=== PATIENT | male | born 1965 | race Caucasian/White ===

== ENCOUNTER → 2017-04-18 | Day surgery (SDC) | payer OTHER ==
[~2017-04-18] VITALS: Ht 172.7 cm; Wt 86.0 kg
[~2017-04-18] MED LIST: AMLO1CAP3 PO; CARV25TA PO; METH750T3 PO; Sodium Chloride LOK Flush 10 mL Syringe IV PRN; TAMS0.4C98 PO; fentaNYL-PF 50 mCg/mL 2 mL Inj IVPUSH PRN
[2017-04-18 08:47] VITALS: BP 154/109; PULSE 68; RESP 14; O2SAT 99
[2017-04-18] MEDS: 0.9% Sodium Chloride 1,000 ML IV SCH ×2 (09:17→09:32)
[2017-04-18 09:43] VITALS: BP 128/83; PULSE 71; RESP 16; O2SAT 96
--- NOTE | 2017-04-18 09:43 | PCM.ENDCOL ---
Colonoscopy Date of Service: Apr 18, 2017 Physician Schuyler Woo MD Pre Procedure Diagnosis: Screening family history of colon cancer Post Procedure Dx & Findings: Polyps hemorrhoid Procedure Colonoscopy PROCEDURE IN DETAIL: Prep adequate Withdrawal time 20 minutes After unremarkable rectal examination the Olympus video colonoscope was inserted patient's anal canal and was advanced to cecum. Landmarks were identified including the ileocecal valve and appendiceal orifice. Scope was withdrawn systematically. Visualized colonic mucosa showed healthy shiny mucosa with normal healthy-appearing vasculature. In the cecum, there was a 1 mm polyp which was removed completely using cold forceps. In the ascending colon there was a 2 mm polyp which is removed completely with cold snare. There was also 1 mm polyp in the ascending colon which was removed completely using cold forceps. In the transverse colon, there was a 1.5 cm flat polyp was removed completely hot snare. 6 mL of normal saline use for lifting. 2 resolution clips deployed. There was a 6-7 mm flat polyp in the transverse colon which was also removed completely using cold snare. In the rectum retroflexion was done which showed hemorrhoids. Anal canal was inspected carefully on the way out and hemorrhoids noted. Impression Polyp 5 status post complete removal. Largest polyp was 1.5 cm. Family history of colon cancer. Hemorrhoids Recommendation Repeat colonoscopy 3 years Presedation Assessment Risks and Benefits Informed consent was obtained from the patient after all risks and benefits including but not limited to drug reaction, infection, pain, bleeding, perforation, as well as alternatives were discussed. Patient monitoring Continuous pulse oximetry, cardiac monitoring, blood pressure monitoring, IV access, and oxygen at 2L per nasal cannula. Periprocedural Fentanyl: Fentanyl 75mcg Incrementally Midazolam: Midazolam 4mg Incrementally Complications There were no periprocedural complications identified. Post Procedure Plan Post Procedure Recommendations 1. Restrict activities today. 2. Resume normal activities in the morning. 3. Resume medications. 4. Patient informed of normal post procedure side effects as bloating, drowsiness, blood streaking in the stool. 5. average risk CRCS. If colon polyps come back as: -Hyperplastic- can repeat colonoscopy in 10 years -Tubular adenoma- repeat colonoscopy in 5 years -Tubulovillous/villous adenoma- repeat colonoscopy in 3 years -If any dysplasia- return to clinic as soon as possible 6. Please don't hesitate to call me with any questions. Schuyler Woo MD Apr 18, 2017 09:43
[2017-04-18 09:53] VITALS: BP 136/89; PULSE 71; RESP 16; O2SAT 96
--- NOTE | 2017-04-22 11:24 | PATH ---
SURGICAL PATHOLOGY Attending Physician:Schuyler Woo M.D. CASE STATUS: Signed Out PATIENT NAME: WILLY NOWAK JR PID: [id number] : 1965 DATE COLLECTED:04/18/2017 19:51 SPECIMEN: 1: Colon, Polyp 2: Colon, Polyp 3: Colon, Polyp CLINICAL HISTORY: FAMILY HISTORY COLON CA, COLON POLYPS 1). CECAL POLYP 2). ASCENDING COLON POLYPS X 2 3). TRANSVERSE COLON POLYPS X 2 FINAL DIAGNOSIS: 1. Cecal Polyp, Biopsy: Tubular adenoma. 2. Ascending Colon Polyps x2, Biopsies: Tubular adenoma x2. 3. Transverse Colon Polyps x2, Biopsies: Sessile serrated adenoma x2. ICD10: D12.0 D12.2 D12.3 GROSS DESCRIPTION: The specimen is received in three formalin filled containers labeled with the patient's name. 1). The specimen is labeled "cecal polyp" and consists of a 0.2 x 0.2 x 0.2 CM portion of tissue which is entirely submitted in cassette 1A. 2). The specimen is labeled "ascending polyps" and consists of 2 portions of tissue which aggregate to 0.2 x 0.2 x 0.2 CM. The specimen is entirely submitted in cassette 2A. 3). The specimen is labeled "transverse colon polyps" and consists of multiple portions of tissue which aggregate to 0.6 x 0.5 x 0.2 CM. The specimen is entirely submitted in cassette 3A. 04/18/2017DC ICD-9 CODES: CPT CODES: 1: 00878 2: 30799 3: 83042 Electronically Signed Out Kevin Weiss MD, Ph.D. [facility] [address], [place] [address] Technical component performed at [facility], [facility] [address], [place], [address]
== END | disposition home or self-care (01) ==
LOC: END 08:25
PROVIDERS: ATTEND Internal Medicine
DX: Z12.11 Encounter for screening for malignant neoplasm of colon (principal); D12.0 Benign neoplasm of cecum; D12.2 Benign neoplasm of ascending colon; D12.3 Benign neoplasm of transverse colon; K64.8 Other hemorrhoids; Z80.0 Family history of malignant neoplasm of digestive organs; I10 Essential (primary) hypertension; F17.210 Nicotine dependence, cigarettes, uncomplicated
CPT/HCPCS: 45380; 45381; 45385; 99153; G0500; J2250; J3010; J7030